=== PATIENT | male | born 1980 | race African-American/Black ===

== ENCOUNTER 2020-12-30 18:12 | Emergency (ER) | payer BC, SELFPAY ==
[2020-12-30 18:15] VITALS: BP 149/64; PULSE 97; RESP 20; TEMP 37.3; O2SAT 98
--- NOTE | 2020-12-30 19:43 | PC.NURSE ---
received report from Candice PIERCE. see notes. resting on side of stretcher. waiting for further orders from provider.
--- NOTE | 2020-12-30 19:43 | PC.NURSE ---
flu swab and covid swab done at bedside. patient aware that Covid swab takes at least 24 hours for results. updated that influenza results in about 30 minutes. patient asked several times if he has to stay here for influenza results. patient advised yes, and he has not been discharged yet.
--- NOTE | 2020-12-30 20:03 | ED.GENADULT ---
HPI - General Adult General Chief complaint: Unspecified Stated complaint: body aches/lal/sore throat Time Seen by Provider: 12/30/20 18:56 History of Present Illness HPI narrative: Patient is a 40-year-old male who presents ER with concerns for Covid symptoms. Patient was exposed to a coworker 6 days ago. He began developing fever 2 days ago. He has been having fevers with chills and body aches and fatigue. He has some mild sore throat but no productive cough or dyspnea. Patient also reports he feels like his skin is sensitive on his back. No numbness or tingling to the arms or legs. No focal weakness. Reports he has been taking [id number] medication for symptoms. No alleviating factors. No loss of taste or smell. Related Data Allergies Allergy/AdvReac Type Severity Reaction Status Date / Time No Known Allergies Allergy Verified 12/30/20 18:17 Review of Systems Review of Systems: All systems reviewed & are unremarkable except as noted in HPI and below Constitutional: Constitutional: Reports chills, Reports fatigue and Reports fever(s) ENT: Reports sore throat and Denies throat swelling Comments: No loss of smell or taste. Cardiovascular: Cardiovascular: Denies chest pain and Denies rapid heart rate Respiratory: Respiratory: Denies cough, Denies dyspnea and Denies wheezing Musculoskeletal: Musculoskeletal: Reports back pain, Denies muscle cramps and Denies muscle weakness PMFSH Past Medical History Medical History (Updated 12/30/20 @ 20:08 by Ashwin Minaya MD) Healthy adult male Surgical History Surgical History (Updated 12/30/20 @ 20:05 by Ashwin Minaya MD) Hx of inguinal hernia surgery Family History Family History (Updated 09/19/17 @ 10:04 by DOCTOR UNKNOWN) Mother Hypertension Sibling Hypertension Social History Social History Smoking status: Never smoker Alcohol intake: current Exam Narrative: Exam Narrative: GENERAL: Well-appearing, well-nourished, and in no acute distress. HEAD: Normocephalic, atraumatic. CHEST: Clear to auscultation. No respiratory distress. HEART: Regular rate and rhythm. Normal peripheral pulses. EXTREMITIES: Normal range of motion. Normal strength. Back: No midline tenderness of the thoracic or lumbar spine. No reproducible paraspinal muscular tenderness. No visible rash to the. SKIN: Warm, dry, no rash. NEURO: Alert and oriented x3. PSYCH: Normal mood and affect. Course Course Emergency Course: Symptoms concerning for viral etiology. Influenza negative. SARS test ordered. Discussed supportive therapy at home and need for self-isolation until Covid results return. Patient verbalized understanding. Encourage fluids as well as Tylenol and ibuprofen as needed for fever and body aches. Vital Signs Vital signs: Vital Signs Temperature 99.2 F 12/30/20 18:15 Pulse Rate 97 12/30/20 18:15 Respiratory Rate 20 12/30/20 18:15 Blood Pressure 149/64 H 12/30/20 18:15 Pulse Oximetry 98 12/30/20 18:15 Temperature 99.2 F 12/30/20 18:15 Pulse Rate 97 12/30/20 18:15 Respiratory Rate 20 12/30/20 18:15 Blood Pressure 149/64 H 12/30/20 18:15 Pulse Oximetry 98 12/30/20 18:15 Medical Decision Making Vital Signs Vital Signs: Vital Signs Temperature 99.2 F 12/30/20 18:15 Pulse Rate 97 12/30/20 18:15 Respiratory Rate 20 12/30/20 18:15 Blood Pressure 149/64 H 12/30/20 18:15 Pulse Oximetry 98 12/30/20 18:15 Temperature 99.2 F 12/30/20 18:15 Pulse Rate 97 12/30/20 18:15 Respiratory Rate 20 12/30/20 18:15 Blood Pressure 149/64 H 12/30/20 18:15 Pulse Oximetry 98 12/30/20 18:15 Lab Data Labs: Influenza A Screen Negative Reference Range: Negative Influenza B Screen Negative Reference Range: Negative Discharge Plan Discharge Clinical Impressi
[2021-01-01 18:28] LABS: SARS-CoV-2 RNA PCR Positive
== END 2020-12-30 20:17 | disposition home or self-care (01) ==
PROVIDERS: Emergency Provider Emergency Medicine
DX: U07.1 COVID-19 (principal)
CPT/HCPCS: 87804; 99283; C9803; U0003; U0005